=== PATIENT | female | born 1985 | race Caucasian/White ===

== ENCOUNTER 2019-10-05 13:04 | Outpatient (CLI) | payer BC ==
--- NOTE | 2019-10-05 14:21 | MRI ---
MRI LEFT KNEE: Date: 10/05/19 PROVIDED CLINICAL HISTORY: Left knee pain and instability. FINDINGS: Intact fibers of the anterior cruciate ligament are not identified. The posterior cruciate ligament, medial collateral ligament, and lateral collateral ligamentous complex demonstrate an intact MR appea adi, as does the extensor mechanism. The medial and lateral menisci demonstrate no evidence for tear. No focal articular cartilage defect is apparent. Osteochondral impaction injury is seen involving lateral femoral condyle with contusions noted involv ing posterior medial and posterolateral tibial plateaus, as well as anterior aspect of medial femoral epicondyle. Regional marrow and muscular signal appear otherwise normal. There is a moderate knee joint effusion. IMPRESSION: 1. ACL disruption. 2. Osteochondral impaction injury lateral femoral condyle and contusions about the knee as described . 3. Moderate knee joint effusion. POS: OFF
== END 2019-10-05 13:05 | disposition home or self-care (01) ==
LOC: SCSMRI 13:04
PROVIDERS: ATTEND Orthopaedic Surgery
DX: S83.512A Sprain of anterior cruciate ligament of left knee, initial encounter (principal); M25.462 Effusion, left knee; S80.02XA Contusion of left knee, initial encounter